=== PATIENT | female | born 1990 | race African-American/Black ===

== ENCOUNTER → 2017-06-27 14:51 | Emergency (ER) | payer BC ==
[~2017-06-27 14:51] MED LIST: NS 0.9% 1000 ML* 1,000 ML IV ONE; cefTRIAXone(*) 1 GM in NS 0.9% 50 ML* 50 ML IVPB ONE
[2017-06-27 16:15] LABS: Hematocrit 35 % (35-47); Hemoglobin 11.2 g/dl (12.0-16.0); Mean Corpuscular HGB Conc 33 g/dl (31-36); Mean Corpuscular Hemoglobin 26 pg (27-31); Mean Corpuscular Volume 79 fL (80-97); Mean Platelet Volume 9 um3 (7.4-10.4); Red Blood Count 4.38 10^6/ul (4.0-5.4); Red Cell Distribution Width 16 % (10.5-15); White Blood Count 8.1 10^3/ul (3.5-10.8)
[2017-06-27 16:31] LABS: Albumin 3.2 g/dL (3.2-5.2); BUN/Creatinine Ratio 15.8 (8-20); C Reactive Protein 12.55 mg/L (< 5.00); Calcium 8.6 mg/dL (8.6-10.3); EGFR African American 163.6 (>60); EGFR Non-African American 127.2 (>60); Globulin 3.3 g/dL (2-4); Potassium 3.3 mmol/L (3.5-5.0); Total Bilirubin 0.4 mg/dL (0.2-1.0); Total Protein 6.5 g/dL (6.4-8.9)
[2017-06-27 17:03] LABS: Urine Bacteria Absent (Absent); Urine Bilirubin Negative (Negative); Urine Glucose Negative (Negative); Urine Nitrite Negative (Negative)
[2017-06-27 19:14] VITALS: BP 118/66
--- NOTE | 2017-06-28 13:28 | ED ---
Shelton Albert Nilda, scribed for Stephen Rodriguez MD on 06/27/17 at 1656 . 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 The patient rates the pain 7/10 in severity. Symptoms aggravated by nothing and alleviated by spontaneous resolution. Patient reports dizziness, nausea, right adnexal groin pain, right back pain (intermittent, for 3 weeks), spotting, vomiting, diaphoresis, and chills. Patient denies vaginal discharge, burning with urination, dysuria, and fever. Patient is 36 weeks and has been feeling sick throughout the . No PMHx of pre-eclampsia or gestational diabetes. - History Of Current Complaint Chief Complaint: EDAbdPain Time Seen by Provider: 06/27/17 15:46 Hx Obtained From: Patient Onset/Duration: Sudden Onset Timing: Seconds Context: Witnessed Activity At Onset: Other - filing papers Aggravating Factor(s): Nothing Alleviating Factor(s): Spontaneous Resolution Associated Signs And Symptoms: Other - dizziness, nausea, right adnexal groin pain, right back pain (intermittent, for 3 weeks), spotting, vomiting, diaphoresis, and chills. Patient denies vaginal discharge, burning with urination, dysuria, and fever - Allergies/Home Medications Allergies/Adverse Reactions: Allergies Allergy/AdvReac Type Severity Reaction Status Date / Time No Known Allergies Allergy Verified 06/27/17 15:07 PMH/Surg Hx/FS Hx/Imm Hx Endocrine/Hematology History: Denies: Hx Diabetes, Hx Thyroid Disease Cardiovascular History: Denies: Hx Hypertension Respiratory History: Denies: Hx Asthma, Hx Chronic Obstructive Pulmonary Disease (COPD) GI History: Denies: Hx Ulcer Infectious Disease History: No Infectious Disease History: Denies: Hx Hepatitis, Hx Human Immunodeficiency Virus (HIV), History Other Infectious Disease, Traveled Outside the [place] in Last 30 Days - Family History Known Family History: Positive: Diabetes Negative: Hypertension - Social History Alcohol Use: Occasionally Substance Use Type: Reports: None Smoking Status (MU): Never Smoked Tobacco Review of Systems Positive: Chills, Skin Diaphoresis. Negative: Fever Negative: Erythema Negative: Sore Throat Negative: Chest Pain Negative: Shortness Of Breath, Cough Positive: Vomiting, Nausea. Negative: Abdominal Pain Genitourinary: Other - 36 week Positive: pain - right adnexal groin pain, other - spotting . Negative: burning, dysuria, discharge, hematuria Positive: Other - right back pain. Negative: Myalgia, Edema Neurological: Other - dizziness All Other Systems Reviewed And Are Negative: Yes Physical Exam - Summary Physical Exam Summary: Constitutional: Well-developed, Well-nourished, Alert. (-) Distressed Skin: Warm, Dry HENT: Normocephalic; Atraumatic Eyes: Conjunctiva normal, Dry Mucous Membrane Neck: Musculoskeletal ROM normal neck. (-) JVD, (-) Stridor, (-) Tracheal deviation Cardio: Rhythm regular, rate normal, Heart sounds normal; Intact distal pulses; The pedal pulses are 2+ and symmetric. Radial pulses are 2+ and symmetric. (-) Murmur Pulmonary/Chest wall: Effort normal. (-) Respiratory distress, (-) Wheezes, (-) Rales Abd: Soft, (-) Distension, (-) Guarding, (-) Rebound, Mild right groin tenderness Musculoskeletal: (-) Edema Lymph: (-) Cervical adenopathy Neuro: Alert, Oriented x3 Psych: Mood and affect Normal Triage Information Reviewed: Yes Vital Signs On Initial Exam: Initial Vitals Temp Pulse Resp BP Pulse Ox 98.2 F 89 16 100/56 97 06/27/17 15:07 06/27/17 15:07 06/27/17 15:07 06/27/17 15:07 06/27/17 15:07 Vital Signs Reviewed: Yes Diagnostics - Vital Signs Vital Signs Temp Pulse Resp BP Pulse Ox 06/27/17 16:30 92 103/52 99 06/27/17 16:00 80 109/62 98 06/27/17 15:30 90 99/52 98 06/27/17 15:23 118/60 06/27/17 15:16 86 97 06/27/17 15:09 88 97 06/27/17 15:07 98.2 F 89 16 100/56 97 - Laboratory Lab Results: Lab Results 06/27/17 06/27/17 06/27/17 Range/Units 16:00 16:00 16:00 WBC 8.1 (3.5-10.8) 10^3/ul RBC 4.38 (4.0-5.4) 10^6/ul Hgb 11.2 L (12.0-16.0) g/dl Hct 35 (35-47) % MCV 79 L (80-97) fL MCH 26 L (27-31) pg MCHC 33 (31-36) g/dl RDW 16 H (10.5-15) % Plt Count 189 (150-450) 10^3/ul MPV 9 (7.4-10.4) um3 Neut % (Auto) 71.6 (38-83) % Lymph % (Auto) 18.7 L (25-47) % Dewey % (Auto) 8.9 (1-9) % Eos % (Auto) 0.4 (0-6) % Baso % (Auto) 0.4 (0-2) % Absolute Neuts (auto) 5.8 (1.5-7.7) 10^3/ul Absolute Lymphs (auto) 1.5 (1.0-4.8) 10^3/ul Absolute Monos (auto) 0.7 (0-0.8) 10^3/ul Absolute Eos (auto) 0 (0-0.6) 10^3/ul Absolute Basos (auto) 0 (0-0.2) 10^3/ul Absolute Nucleated RBC 0.01 10^3/ul Nucleated RBC % 0.1 Sodium 133 (133-145) mmol/L Potassium 3.3 L (3.5-5.0) mmol/L Chloride 104 (101-111) mmol/L Carbon Dioxide 24 (22-32) mmol/L Anion Gap 5 (2-11) mmol/L BUN 9 (6-24) mg/dL Creatinine 0.57 (0.51-0.95) mg/dL Est GFR ( Amer) 163.6 (>60) Est GFR (Non-Af Amer) 127.2 (>60) BUN/Creatinine Ratio 15.8 (8-20) Glucose 86 (70-100) mg/dL Lactic Acid 0.7 (0.5-2.0) mmol/L Calcium 8.6 (8.6-10.3) mg/dL Total Bilirubin 0.40 (0.2-1.0) mg/dL AST 14 (13-39) U/L ALT 9 (7-52) U/L Alkaline Phosphatase 117 H (34-104) U/L C-Reactive Protein 12.55 H (< 5.00) mg/L Total Protein 6.5 (6.4-8.9) g/dL Albumin 3.2 (3.2-5.2) g/dL Globulin 3.3 (2-4) g/dL Albumin/Globulin Ratio 1.0 (1-3) Lipase 22 (11.0-82.0) U/L Result Diagrams: 06/27/17 16:00 06/27/17 16:00 Lab Statement: Any lab studies that have been ordered have been reviewed, and results considered in the medical decision making process. 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 The patient rates the pain 7/10 in severity. Symptoms aggravated by nothing and alleviated by spontaneous resolution. Patient reports dizziness, nausea, right adnexal groin pain, right back pain (intermittent, for 3 weeks), spotting, vomiting, diaphoresis, and chills. Patient denies vaginal discharge, burning with urination, dysuria, and fever. Patient is 36 weeks and has been feeling sick throughout the . No PMHx of pre- eclampsia or gestational diabetes. [1823] Dr. Jackson (EMAIL DESIGNER) recommends treating patient as outpatient and will see the patient tomorrow afternoon. He advises that IV Abx be administered in the ED. ED Physician agrees. Patient will be discharged with a diagnosis of UTI in and a follow up from Dr. Jackson tomorrow afternoon. The patient is agreeable with this plan. - Diagnoses Provider Diagnoses: UTI in - Physician Notifications Discussed Care of Patient With: Cornelius Jackson - EMAIL DESIGNER Time Discussed With Above Provider: 18:23 Instructed by Provider To: Other - Recommends treating patient as outpatient and will see the patient tomorrow afternoon. He advises that IV Abx be administered in the ED. ED Physician agrees. Discharge - Discharge Plan Condition: Good Disposition: HOME Prescriptions: Cephalexin CAP* [Keflex CAP*] 500 mg PO QID #28 cap Metoclopramide TAB* [Reglan TAB*] 10 mg PO Q8H PRN #6 tab PRN Reason: Nausea/Vomiting Patient Education Materials: Urinary Tract Infection in (ED) Referrals: Susana Colon MD [Primary Care Provider] - Cornelius Jackson MD [Medical Doctor] - 06/28/17 Additional Instructions: Return to ER if you have a fever. RETURN TO THE EMERGENCY DEPARTMENT FOR CHANGING OR WORSENING SYMPTOMS. The documentation as recorded by the Shelton sagastume Nilda accurately reflects the service I personally performed and the decisions made by , Stephen Rodriguez MD.
== END | disposition home or self-care (01) ==
LOC: ED 14:51
DX: O23.43 Unspecified infection of urinary tract in pregnancy, third trimester (principal); Z3A.36 36 weeks gestation of pregnancy; R11.0 Nausea; M54.9 Dorsalgia, unspecified
CPT/HCPCS: 36415; 80053; 81003; 81015; 83605; 83690; 85025; 86140; 87086; 99283; J0696

== ENCOUNTER 2017-10-30 20:02 | Emergency (ER) | payer BC, MEDICAID ==
[2017-10-30] MEDS ORDERED: NS 0.9% 1000 ML* 1,000 ML IV ONE (20:22)
[2017-10-30] MEDS ORDERED: Metoclopramide IV* 5 MG/ML 2 ML VIAL IV ONE (20:22)
[2017-10-30] MEDS ORDERED: Ketorolac INJ* 30 MG/ML 1 ML VIAL IV ONE (20:22)
[2017-10-30] MEDS ORDERED: diPHENhydraMINE IV* 50 MG/ML 1 ml VIAL (BENADRYL) IV ONE (20:24)
[2017-10-30 20:59] LABS: ABS Basophils 0.1 10^3/ul (0-0.2); ABS Eosinophils 0.1 10^3/ul (0-0.6); ABS Lymphocytes 1.8 10^3/ul (1.0-4.8); ABS Monocytes 0.6 10^3/ul (0-0.8); ABS Nucleated RBC 0 10^3/ul; Eosinophil % 1.2 % (0-6); Hematocrit 39 % (35-47); Hemoglobin 12.6 g/dl (12.0-16.0); Lymphocyte % 27.6 % (25-47); Mean Corpuscular HGB Conc 32 g/dl (31-36); Mean Corpuscular Hemoglobin 25 pg (27-31); Mean Corpuscular Volume 79 fL (80-97); Mean Platelet Volume 8 um3 (7.4-10.4); Nucleated Red Blood Cells % 0; Platelet Count 289 10^3/ul (150-450); Red Cell Distribution Width 15 % (10.5-15); White Blood Count 6.6 10^3/ul (3.5-10.8)
[2017-10-30 21:05] LABS: EGFR Non-African American 113.4 (>60)
[2017-10-30] MEDS ORDERED: diPHENhydraMINE IV* 50 MG/ML 1 ml VIAL (BENADRYL) ONE (21:06)
--- NOTE | 2017-10-30 21:41 | RAD ---
CLINICAL HISTORY: Abdominal pain COMPARISON: None TECHNIQUE: Multiple contiguous axial CT scans were obtained of the abdomen and pelvis, without intravenous contrast enhancement. Coronal and sagittal multiplanar reformations are submitted for review. Oral contrast was not administered. FINDINGS: LUNG BASES: The lung bases are clear. LIVER: The liver is normal in shape, size, contour, and attenuation. BILE DUCTS: There is no intrahepatic or extrahepatic biliary dilatation. GALLBLADDER: The gallbladder is normal, without pericholecystic inflammatory change. PANCREAS: The pancreas is normal, without mass or ductal dilatation. SPLEEN: Normal in size and appearance. UPPER GI TRACT: Evaluation of the gastrointestinal tract is limited by incomplete gastric distention. The upper GI tract is unremarkable. SMALL BOWEL AND MESENTERY: The small bowel is normal in contour, course, and caliber. There is no obstruction or dilatation. COLON: There is mucosal thickening of the distal transverse colon and the proximal descending colon. There is a tubular, vermiform, hollow viscus that is blind ending, and originates from the cecum, consistent with a normal appendix. There is no periappendiceal inflammatory change. ADRENALS: Normal bilaterally. KIDNEYS: The kidneys are normal in shape, size, contour, and axis. There is no hydronephrosis or nephrolithiasis. BLADDER: The bladder is smooth in contour. PELVIC ORGANS: The uterus and adnexa are grossly normal for technique. AORTA: The aorta is normal. IVC: Unremarkable LYMPH NODES: There is no lymphadenopathy by size criteria. ABDOMINAL WALL: There is a small fat-containing umbilical hernia. BONES AND SOFT TISSUES: Unremarkable OTHER: None IMPRESSION: THERE IS MUCOSAL THICKENING OF THE DISTAL TRANSVERSE COLON AND PROXIMAL DESCENDING COLON. WHILE THIS MAY BE AN ARTIFACT OF INCOMPLETE DISTENTION, THE DIFFERENTIAL DOES INCLUDE COLITIS.
[2017-10-30 22:20] VITALS: BP 111/70
--- NOTE | 2017-10-31 06:34 | ED ---
Romulo Albert Gabriel, scribed for Alisson Carrera MD on 10/30/17 at 2028 . Headache - HPI Summary HPI Summary: This patient is a 27 year old F BIBA to [facility] with a chief complaint of left sided WALSH that began this afternoon. The patient rates the pain 7/10 in severity. Patient reports intermittent ABD pain on left side, vomiting, photophobia, and dizziness. Patient denies diarrhea, fever, hematuria, numbness , tingling, and weakness. Patient just had her first child in July and is taking medication for post- depression. No hx of kidney stones or migraines. Given 4mg zofran by EMS. - History Of Current Complaint Chief Complaint: EDAbdPain Stated Complaint: ABD PAINS Time Seen by Provider: 10/30/17 20:16 Hx Obtained From: Patient Hx Last Menstrual Period: 08/22/14 Onset/Duration: Started hours ago, Still Present Initially Headache Was: "Worst Headache Ever" - 7 Currently Pain Is: Current Pain Scale(0-10)= - 7 Timing: Constant Location of Headache: Other: - left hand side Aggravating Factor: Bright Lights Associated Signs And Symptoms: Negative - diarrhea, fever, hematuria, numbness , tingling, and weakness, Other (Noted In Comments) - intermittent ABD pain on left side, vomiting, photophobia, and dizziness - Allergies/Home Medications Allergies/Adverse Reactions: Allergies Allergy/AdvReac Type Severity Reaction Status Date / Time No Known Allergies Allergy Verified 07/26/17 09:52 PMH/Surg Hx/FS Hx/Imm Hx Endocrine/Hematology History: Denies: Hx Diabetes, Hx Thyroid Disease Cardiovascular History: Denies: Hx Hypertension Respiratory History: Denies: Hx Asthma, Hx Chronic Obstructive Pulmonary Disease (COPD) GI History: Denies: Hx Ulcer History: Denies: Hx Kidney Infection, Hx Kidney Stones, Hx Renal Disease Neurological History: Denies: Hx Migraine Psychiatric History: Denies: Hx Anxiety, Hx Depression, Other Psychiatric Issues/Disorders Infectious Disease History: No Infectious Disease History: Denies: Hx Hepatitis, Hx Human Immunodeficiency Virus (HIV), History Other Infectious Disease, Traveled Outside the [place] in Last 30 Days - Family History Known Family History: Positive: Diabetes Negative: Hypertension - Social History Lives: With Family Alcohol Use: Occasionally Substance Use Type: Reports: None Smoking Status (MU): Never Smoked Tobacco Have You Smoked in the Last Year: No Review of Systems Negative: Fever Positive: Photophobia Positive: Abdominal Pain, Vomiting. Negative: Diarrhea Negative: hematuria Neurological: Other - dizziness Negative: Weakness, Paresthesia, Numbness All Other Systems Reviewed And Are Negative: Yes Physical Exam - Summary Physical Exam Summary: VITAL SIGNS: Reviewed. GENERAL: Patient is a well-developed and nourished female who is lying comfortable in the stretcher. Patient is not in any acute respiratory distress. HEAD AND FACE: No signs of trauma. No ecchymosis, hematomas or skull depressions. No sinus tenderness. EYES: PERRLA, EOMI x 2, No injected conjunctiva, no nystagmus. Photophobic EARS: Hearing grossly intact. Ear canals and tympanic membranes are within normal limits. MOUTH: Oropharynx within normal limits. NECK: Supple, trachea is midline, no adenopathy, no JVD, no carotid bruit, no c- spine tenderness, neck with full ROM. CHEST: Symmetric, no tenderness at palpation LUNGS: Clear to auscultation bilaterally. No wheezing or crackles. CVS: Regular rate and rhythm, S1 and S2 present, no murmurs or gallops appreciated. ABDOMEN: Soft. No signs of distention. No rebound no guarding, and no masses palpated. Bowel sounds are normal. LLQ and LUQ is TTP EXTREMITIES: FROM in all major joints, no edema, no cyanosis or clubbing. NEURO: Alert and oriented x 3. No acute neurological deficits. Speech is normal and follows commands. SKIN: Dry and warm Triage Information Reviewed: Yes Vital Signs On Initial Exam: Initial Vitals Temp Pulse Resp BP Pulse Ox 98.7 F 82 18 122/87 98 10/30/17 20:06 10/30/17 20:06 10/30/17 20:06 10/30/17 20:06 10/30/17 20:06 Vital Signs Reviewed: Yes Diagnostics - Vital Signs Vital Signs Temp Pulse Resp BP Pulse Ox 10/30/17 20:06 98.7 F 82 18 122/87 98 - Laboratory Result Diagrams: 10/30/17 20:40 10/30/17 20:40 Lab Statement: Any lab studies that have been ordered have been reviewed, and results considered in the medical decision making process. Re-Evaluation - Re-Evaluation First Eval Re-Evaluation Time: 21:30 Change: Improved Comment: The patients headache has resolved she feels better but she does not want to wait for her CT results. Headache Course/Dx - Course Assessment/Plan: This patient is a 27 year old F BIBA to [facility] with a chief complaint of left sided WALSH that began this afternoon. The patient rates the pain 7/10 in severity. Patient reports intermittent ABD pain on left side, vomiting, photophobia, and dizziness. Patient denies diarrhea, fever, hematuria , numbness, tingling, and weakness. Patient just had her first child in July and is taking medication for post- depression. No hx of kidney stones or migraines. Given 4mg zofran by EMS. . Bloodwork obtained with no significant abnormalities. Patient would not wait for the CT results. In the ED course the patient was given Reglan, IV fluids, toradol, and benadryl. Patient will sign out AMA with follow up with PCP JOSELITO. The patient is agreeable with this plan. - Diagnoses Provider Diagnoses: Headache, Abdominal pain Discharge - Discharge Plan Condition: Fair Disposition: AGAINST MEDICAL ADVICE Patient Education Materials: Acute Headache (ED), Acute Abdominal Pain (ED) Referrals: Susana Colon MD [Primary Care Provider] - As Soon As Possible Additional Instructions: You are leaving against medical advice; see your primary care provider as soon as possible. RETURN TO EMERGENCY DEPARTMENT FOR ANY NEW OR WORSENING SYMPTOMS The documentation as recorded by the Romulo sagastume Gabriel accurately reflects the service I personally performed and the decisions made by me, Alisson Carrera MD.
== END 2017-10-30 22:16 | disposition left against medical advice (07) ==
LOC: ED 20:02
DX: R51 Headache (principal); R10.9 Unspecified abdominal pain
CPT/HCPCS: 36415; 74176; 80053; 82150; 83690; 84702; 85025; 86140; 96360; 96374; 96375; 96376; 99283; J1200; J1885; J2765

== ENCOUNTER 2017-10-31 11:34 | Emergency (ER) | payer BC, MEDICAID ==
[2017-10-31 13:24] LABS: ABS Basophils 0.1 10^3/ul (0-0.2); ABS Eosinophils 0.1 10^3/ul (0-0.6); ABS Lymphocytes 1.5 10^3/ul (1.0-4.8); ABS Monocytes 0.4 10^3/ul (0-0.8); ABS Neutrophils 3.8 10^3/ul (1.5-7.7); ABS Nucleated RBC 0 10^3/ul; Hematocrit 40 % (35-47); Hemoglobin 12.7 g/dl (12.0-16.0); Lymphocyte % 25.6 % (25-47); Mean Corpuscular HGB Conc 32 g/dl (31-36); Mean Corpuscular Hemoglobin 25 pg (27-31); Mean Corpuscular Volume 79 fL (80-97); Mean Platelet Volume 8 um3 (7.4-10.4); Nucleated Red Blood Cells % 0.1; Platelet Count 282 10^3/ul (150-450); Red Blood Count 5.08 10^6/ul (4.0-5.4); Red Cell Distribution Width 16 % (10.5-15); White Blood Count 5.7 10^3/ul (3.5-10.8)
[2017-10-31 13:40] LABS: EGFR Non-African American 82.5 (>60)
[2017-10-31 14:10] LABS: Urine Appearance Cloudy; Urine Blood 1+ (Negative); Urine Color Yellow; Urine Ketones Negative (Negative); Urine Protein Negative (Negative); Urine Specific Gravity 1.023 (1.010-1.030); Urine Urobilinogen Negative (Negative)
[2017-10-31] MEDS ORDERED: NS 0.9% 1000 ML* 1,000 ML IV ONE (14:25)
[2017-10-31] MEDS ORDERED: Ketorolac INJ* 30 MG/ML 1 ML VIAL IV PUSH ONE (14:25)
[2017-10-31] MEDS ORDERED: Ondansetron INJ* 2 MG/ML VIAL IV ONE (14:25)
--- NOTE | 2017-10-31 14:26 | ED ---
Abdominal Pain/Female - HPI Summary HPI Summary: 27 female presents to ED with complaints of left lower abdominal pain, fever, headache, n/v, and dizziness that has been on going since yesterday. Patient states she was seen yesterday after becoming sick while at work last night. Signed out AMA without CT results. Patient did however call and hear that CT did show possible colitis. Denies diarrhea, current fever, has not vomited today. Denies chest pain or trouble breathing. States headache feels typical and it is diffuse. Dizziness is at all times associated with photophobia. No recent trauma or injury. No numbness/tingling or changes to vision. Also admits to body aches. Has not taken any medication. Did receive zofran, toradol and fluids yesterday with relief. Is taking ecitalopram for post- depression. No other PMHx. no other complaints. Was unable to get into PCP and told to return to ED if abdominal pain symptoms were worsening. Has also had decreased appetite, not been eating or drinking. LBM yesterday and and normal. No urinary symptoms. - History of Current Complaint Chief Complaint: EDAbdPain Stated Complaint: VOMITING, HEAD PAIN, Time Seen by Provider: 10/31/17 12:32 Hx Obtained From: Patient Hx Last Menstrual Period: 08/22/14 ?: No Onset/Duration: Sudden Onset, Lasting Days, Still Present Timing: Constant Severity Initially: Mild Severity Currently: Mild Pain Intensity: 5 Pain Scale Used: 0-10 Numeric Location: Discrete At: LLQ Radiates: No Radiates to: LLQ Character: Dull - aching Aggravating Factor(s): Nothing Alleviating Factor(s): Medications - given yesterday Associated Signs and Symptoms: Positive: Fever, Decreased Appetite, Nausea, Vomiting - resolved. Negative: Constipation, Blood in Stool, Urinary Symptoms Allergies/Adverse Reactions: Allergies Allergy/AdvReac Type Severity Reaction Status Date / Time No Known Allergies Allergy Verified 07/26/17 09:52 PMH/Surg Hx/FS Hx/Imm Hx Endocrine/Hematology History: Denies: Hx Diabetes, Hx Thyroid Disease Cardiovascular History: Denies: Hx Hypertension Respiratory History: Denies: Hx Asthma, Hx Chronic Obstructive Pulmonary Disease (COPD) GI History: Denies: Hx Ulcer History: Denies: Hx Kidney Infection, Hx Kidney Stones, Hx Renal Disease Neurological History: Denies: Hx Migraine Psychiatric History: Denies: Hx Anxiety, Hx Depression, Other Psychiatric Issues/Disorders - Surgical History Surgery Procedure, Year, and Place: none - Immunization History Immunizations Up to Date: Yes Infectious Disease History: No Infectious Disease History: Denies: Hx Hepatitis, Hx Human Immunodeficiency Virus (HIV), History Other Infectious Disease, Traveled Outside the [place] in Last 30 Days - Family History Known Family History: Positive: None, Diabetes Negative: Hypertension - Social History Alcohol Use: Occasionally Substance Use Type: Reports: None Smoking Status (MU): Never Smoked Tobacco Have You Smoked in the Last Year: No Review of Systems Positive: Fever - resolved Positive: Photophobia ENT: Negative Cardiovascular: Negative Respiratory: Negative Positive: Abdominal Pain, Vomiting - resolved, Nausea Genitourinary: Negative Positive: Myalgia Positive: Headache - dizziness All Other Systems Reviewed And Are Negative: Yes Physical Exam Triage Information Reviewed: Yes Vital Signs On Initial Exam: Initial Vitals Temp Pulse Resp BP Pulse Ox 98.7 F 80 18 127/88 100 10/31/17 11:37 10/31/17 11:37 10/31/17 11:37 10/31/17 11:37 10/31/17 11:37 Vital Signs Reviewed: Yes Appearance: Positive: Well-Appearing, No Pain Distress, Well-Nourished Skin: Positive: Warm, Skin Color Reflects Adequate Perfusion, Dry. Negative: Cold, Numb, Erythema @ Head/Face: Positive: Normal Head/Face Inspection Eyes: Positive: Conjunctiva Clear ENT: Positive: Pharynx normal, TMs normal Neck: Positive: Supple, Nontender Respiratory/Lung Sounds: Positive: Clear to Auscultation, Breath Sounds Present. Negative: Rales, Rhonchi, Wheezes Cardiovascular: Positive: Normal, RRR, Pulses are Symmetrical in both Upper and Lower Extremities. Negative: Murmur, Rub Abdomen Description: Positive: No Organomegaly, Soft, CVA Tenderness (L), Other : - tenderness to left lower and mid quadrant on palpation. Negative: Bruit, CVA Tenderness (R), Distended, Guarding, McBurney's Point Tenderness, Peritoneal Signs, Pulsatile Mass Bowel Sounds: Positive: Present Pelvic Exam: Positive: external exam normal - deferred, asymptomatic no suprapubic pain Musculoskeletal: Positive: Normal, Strength/ROM Intact Neurological: Positive: Normal, Sensory/Motor Intact, Alert, Oriented to Person Place, Time Diagnostics - Vital Signs Vital Signs Temp Pulse Resp BP Pulse Ox 10/31/17 11:37 98.7 F 80 18 127/88 100 - Laboratory Lab Results: Lab Results 10/31/17 10/31/17 10/31/17 Range/Units 13:05 13:15 13:15 WBC 5.7 (3.5-10.8) 10^3/ul RBC 5.08 (4.0-5.4) 10^6/ul Hgb 12.7 (12.0-16.0) g/dl Hct 40 (35-47) % MCV 79 L (80-97) fL MCH 25 L (27-31) pg MCHC 32 (31-36) g/dl RDW 16 H (10.5-15) % Plt Count 282 (150-450) 10^3/ul MPV 8 (7.4-10.4) um3 Neut % (Auto) 65.7 (38-83) % Lymph % (Auto) 25.6 (25-47) % Baker % (Auto) 6.5 (1-9) % Eos % (Auto) 1.0 (0-6) % Baso % (Auto) 1.2 (0-2) % Absolute Neuts (auto) 3.8 (1.5-7.7) 10^3/ul Absolute Lymphs (auto) 1.5 (1.0-4.8) 10^3/ul Absolute Monos (auto) 0.4 (0-0.8) 10^3/ul Absolute Eos (auto) 0.1 (0-0.6) 10^3/ul Absolute Basos (auto) 0.1 (0-0.2) 10^3/ul Absolute Nucleated RBC 0 10^3/ul Nucleated RBC % 0.1 Sodium 138 (133-145) mmol/L Potassium 4.1 (3.5-5.0) mmol/L Chloride 108 (101-111) mmol/L Carbon Dioxide 27 (22-32) mmol/L Anion Gap 3 (2-11) mmol/L BUN 11 (6-24) mg/dL Creatinine 0.83 (0.51-0.95) mg/dL Est GFR ( Amer) 106.1 (>60) Est GFR (Non-Af Amer) 82.5 (>60) BUN/Creatinine Ratio 13.3 (8-20) Glucose 85 (70-100) mg/dL Lactic Acid (0.5-2.0) mmol/L Calcium 9.1 (8.6-10.3) mg/dL Total Bilirubin 0.30 (0.2-1.0) mg/dL AST 14 (13-39) U/L ALT 15 (7-52) U/L Alkaline Phosphatase 70 (34-104) U/L C-Reactive Protein 7.44 H (< 5.00) mg/L Total Protein 6.9 (6.4-8.9) g/dL Albumin 3.7 (3.2-5.2) g/dL Globulin 3.2 (2-4) g/dL Albumin/Globulin Ratio 1.2 (1-3) Lipase 31 (11.0-82.0) U/L Urine Color Urine Appearance Urine pH (5-9) Ur Specific [place] (1.010-1.030) Urine Protein (Negative) Urine Ketones (Negative) Urine Blood (Negative) Urine Nitrate (Negative) Urine Bilirubin (Negative) Urine Urobilinogen (Negative) Ur Leukocyte Esterase (Negative) Urine WBC (Auto) (Absent) Urine RBC (Auto) (Absent) Ur Squamous Epith Cells (Absent) Urine Bacteria (Absent) Urine Glucose (Negative) Influenza A (Rapid) Negative (Negative) Influenza B (Rapid) Negative (Negative) 10/31/17 10/31/17 Range/Units 13:15 13:55 WBC (3.5-10.8) 10^3/ul RBC (4.0-5.4) 10^6/ul Hgb (12.0-16.0) g/dl Hct (35-47) % MCV (80-97) fL MCH (27-31) pg MCHC (31-36) g/dl RDW (10.5-15) % Plt Count (150-450) 10^3/ul MPV (7.4-10.4) um3 Neut % (Auto) (38-83) % Lymph % (Auto) (25-47) % Baker % (Auto) (1-9) % Eos % (Auto) (0-6) % Baso % (Auto) (0-2) % Absolute Neuts (auto) (1.5-7.7) 10^3/ul Absolute Lymphs (auto) (1.0-4.8) 10^3/ul Absolute Monos (auto) (0-0.8) 10^3/ul Absolute Eos (auto) (0-0.6) 10^3/ul Absolute Basos (auto) (0-0.2) 10^3/ul Absolute Nucleated RBC 10^3/ul Nucleated RBC % Sodium (133-145) mmol/L Potassium (3.5-5.0) mmol/L Chloride (101-111) mmol/L Carbon Dioxide (22-32) mmol/L Anion Gap (2-11) mmol/L BUN (6-24) mg/dL Creatinine (0.51-0.95) mg/dL Est GFR ( Amer) (>60) Est GFR (Non-Af Amer) (>60) BUN/Creatinine Ratio (8-20) Glucose (70-100) mg/dL Lactic Acid 0.7 (0.5-2.0) mmol/L Calcium (8.6-10.3) mg/dL Total Bilirubin (0.2-1.0) mg/dL AST (13-39) U/L ALT (7-52) U/L Alkaline Phosphatase (34-104) U/L C-Reactive Protein (< 5.00) mg/L Total Protein (6.4-8.9) g/dL Albumin (3.2-5.2) g/dL Globulin (2-4) g/dL Albumin/Globulin Ratio (1-3) Lipase (11.0-82.0) U/L Urine Color Yellow Urine Appearance Cloudy Urine pH 6.0 (5-9) Ur Specific [place] 1.023 (1.010-1.030) Urine Protein Negative (Negative) Urine Ketones Negative (Negative) Urine Blood 1+ H (Negative) Urine Nitrate Negative (Negative) Urine Bilirubin Negative (Negative) Urine Urobilinogen Negative (Negative) Ur Leukocyte Esterase Trace H (Negative) Urine WBC (Auto) Trace(0-5/hpf) (Absent) Urine RBC (Auto) Trace(0-2/hpf) (Absent) Ur Squamous Epith Cells Present H (Absent) Urine Bacteria Absent (Absent) Urine Glucose Negative (Negative) Influenza A (Rapid) (Negative) Influenza B (Rapid) (Negative) Result Diagrams: 10/31/17 13:15 10/31/17 13:15 Lab Statement: Any lab studies that have been ordered have been reviewed, and results considered in the medical decision making process. Re-Evaluation - Re-Evaluation First Eval Re-Evaluation Time: 15:00 Change: Improved - had relief, all pain under control, still felt slightly dizzy. will give meclizine Second Eval Re-Evaluation Time: 16:00 Change: Improved - patient feel better, updated on all labs and results. aware and understands. agrees with plan. all questions answered. symptoms relieved Abdominal Pain Fem Course/Dx - Course Course Of Treatment: yesterday CT results: THERE IS MUCOSAL THICKENING OF THE DISTAL TRANSVERSE COLON AND PROXIMAL DESCENDING COLON. WHILE THIS MAY BE AN ARTIFACT OF INCOMPLETE DISTENTION, THE DIFFERENTIAL DOES INCLUDE COLITIS. Patient was made aware of her results. Repeat labs obtained, given toradol, zofran and meclizine had relief. increase fluids, possibly dehydrated from not eating/drinking. No recent traum or injury. Urinalysis unremarkable will wait for culture results. Appears to be suffering from viral illness. influzena obtained and negative. will treat symptomatically. encouraged fluids and rest. aware of worsening signs and symptoms to watch out for. Follow up GI/PCP. bland diet. No other concerns at this time due to PE findings, HPI and lab results. Labs unremarkable, improved since last nights CRP. and CT unremarkable from last night other than possible colitis. - Diagnoses Differential Diagnosis: Positive: Irritable Bowel Syndrome, Other - colitis, gastroenteritis, acute nausea/vomiting, headache, viral illness, dizzinss Provider Diagnoses: Colitis, Viral illness, Headache, Dizziness Discharge - Discharge Plan Condition: Stable Disposition: HOME Prescriptions: Meclizine TAB* [Antivert 12.5 TAB*] 25 mg PO TID PRN #15 tab PRN Reason: Dizziness Ondansetron ODT TAB* [Zofran 4 MG Odt TAB*] 4 mg PO Q6H PRN #10 tab.odt PRN Reason: Nausea traMADol TAB* [Ultram*] 25 mg PO Q6HR PRN #20 tab MDD 2 PRN Reason: Pain Patient Education Materials: Gastroenteritis (ED), Acute Headache (ED), Viral Syndrome (ED), Colitis (ED) Referrals: Susana Colon MD [Primary Care Provider] - Rudy Ruby MD [Medical Doctor] - Additional Instructions: Take prescribed medication to help with symptoms. Increase fluid intake, bland diet such as bananas, rice, applesauce, toast. Any new or worsening symptoms please seek medical attention promptly, as discussed. Follow up with GI and PCP.
[2017-10-31] MEDS ORDERED: Meclizine TAB* 12.5 MG PO ONE (15:25)
[2017-10-31 16:12] VITALS: BP 122/84
== END 2017-10-31 16:11 | disposition home or self-care (01) ==
LOC: ED 11:34
DX: K52.9 Noninfective gastroenteritis and colitis, unspecified (principal); B34.9 Viral infection, unspecified; R51 Headache; R42 Dizziness and giddiness
CPT/HCPCS: 36415; 80053; 81003; 81015; 83605; 83690; 85025; 86140; 87086; 87502; 96361; 96374; 96375; 99283; A9270-GY; J1885; J2405

== ENCOUNTER 2018-09-01 00:43 | Inpatient (IN) | payer BC, MEDICAID ==
--- NOTE | 2018-09-01 01:14 | HP ---
General Information - General Information Maternal Age: 27 Grav: 4 Para: 1 SAB: 1 IEA: 1 Estimated Due Date: 07/23/17 Determined By: Early Ultrasound Maternal Blood Type and Rh: O Positive - Results this Serology/RPR Result: Non-Reactive Rubella Result: Immune HBsAg Result: Negative HIV Result: Negative GBS Culture Result: Negative Past Medical History Delivery History: Hx Complicated Vaginal Delivery - 3rd degree laceration with first baby, 1st degree with second baby; 1st baby in NICU x 3 days for fever Pertinent Past Medical History: See Records - seasonal allergies, back pain Pertinent Past Surgical History: See Records - drainage of spider bite Pertinent Family History: See Records - HTN, colon CA - Antepartal Records Antepartal Records: Reviewed, Complicated by: - Anemia Review of Systems Constitutional: Uncomfortable CV Complaint: No Respiratory: Shortness of Breath: No Gastrointestinal: No Nausea/Vomiting, Normal Bowel Movement Genitourinary: No Dysuria, No Bleeding, No Leaking Fluid Musculoskeletal: No Epigastric Pain, Contractions Neurological: No Headache, No Visual Changes Movement: Normal Exam Allergies/Adverse Reactions: Allergies No Known Allergies Allergy (Verified 07/26/17 09:52) T-98.1, P-85, R-20, BP- 139/86, O2- 99% - Measurements Height: 5 ft 4 in Weight: 87.997 kg Body Mass Index (BMI): 33.3 Pre- Weight: 72.575 kg - Exam Breast: Breast Exam Deferred CVA: No CVA Tenderness Extremities: No Edema Heart: Normal Rhythm/Heart Sounds HEENT: No Significant Findings Lungs: Clear Bilaterally Rectal: Rectal Exam Deferred Reflexes: DTR 2+ Thyroid: No Thyromegaly - Abdominal Exam Abdomen Exam: Non-Tender, Fundal Height Consistent with Dates - Ultrasound/Biophysical Profile Ultrasound Status: Not Done Targeted Exam Findings See L&D Outpatient Visit Provider Note for Findings: N/A Estimated Weight: 7# Cervical Exam: 3cm - 3-4 cm Effacement: 80% Station: -1 Presenting Part: Vertex Membrane Status: Intact Bleeding/Discharge: None EFM Findings - External Monitor Findings Baseline Heart Rate: 125 External Monitor Findings: No Pattern of Variable or Late Decelerations, Variability Moderate, Baseline Stable, Accelerations Absent Contractions: Regular, Moderate Contraction Frequency: 2-4 Assessment/Plan - Assessment 28 year old at 39 4/7 weeks gestation in active labor, FHR Cat I, membranes intact, GBS negative. - Plan Plan: Admit - Anticipate Vaginal Delivery Plan Comment: Pt to be admitted to L&D. Pt requesting epidural for pain relief. Will contact anesthesia. - Date/Time of Admission Date of Admission: 09/01/18 Time of Admission: 01:02
[2018-09-01 01:20] LABS: ABS Basophils 0.1 10^3/ul (0-0.2); ABS Eosinophils 0 10^3/ul (0-0.6); ABS Lymphocytes 1.8 10^3/ul (1.0-4.8); ABS Monocytes 0.7 10^3/ul (0-0.8); ABS Neutrophils 4.5 10^3/ul (1.5-7.7); ABS Nucleated RBC 0 10^3/ul; Eosinophil % 0.5 %; Hematocrit 29 % (35-47); Hemoglobin 9.1 g/dl (12.0-16.0); Lymphocyte % 25.3 %; Mean Corpuscular HGB Conc 32 g/dl (31-36); Mean Corpuscular Hemoglobin 21 pg (27-31); Mean Corpuscular Volume 66 fL (80-97); Nucleated Red Blood Cells % 0.1; Platelet Count 214 10^3/ul (150-450); Red Blood Count 4.36 10^6/ul (4.00-5.40); Red Cell Distribution Width 19 % (10.5-15); White Blood Count 7.1 10^3/ul (3.5-10.8)
[2018-09-01] MEDS ORDERED: OBEPIDURAL* 250 ML EPIDURAL ONE (01:29)
[2018-09-01] MEDS ORDERED: EPHEDrine (Pressors)* 50 MG/ML VIAL IV PUSH PRN (02:18)
[2018-09-01] MEDS ORDERED: Sodium Citrate/Citric Acid* 15 ML UDC PO PRN (02:18)
[2018-09-01] MEDS ORDERED: Famotidine TAB* 20 MG PO PRN (02:18)
[2018-09-01] MEDS ORDERED: Phenylephrine IV* 40 MCG/ML 10 ML SYRINGE IV PUSH PRN (02:18)
[2018-09-01] MEDS ORDERED: OBEPIDURAL* 250 ML EPIDURAL SCH (03:00)
[2018-09-01] MEDS ORDERED: fentaNYL* 50 MCG/ML 5 ML VIAL (250 MCG VIAL) ONE (04:58)
[2018-09-01] MEDS ORDERED: Oxytocin in LR* 20 UNITS/1,000 ML BAG IVPB ONE (06:09)
[2018-09-01] MEDS ORDERED: Witch Hazel PAD* JAR TOPICAL PRN (07:18)
[2018-09-01] MEDS ORDERED: Glycerin ADULT SUPP PR PRN (07:18)
[2018-09-01] MEDS ORDERED: Dibucaine 1% 28.35 GM TUBE PR PRN (07:18)
[2018-09-01] MEDS: Ibuprofen TAB* 600 MG PO PRN ×3 (09:04→21:40)
[2018-09-01] MEDS: Acetaminophen TAB* 325 MG PO PRN ×3 (11:25→20:11)
[2018-09-01] MEDS: Docusate CAP* 100 MG PO SCH ×2 (13:58→20:11)
--- NOTE | 2018-09-01 21:42 | PROCNOTE ---
[facility] OB: Delivery Note - Delivery A Date of : 09/01/18 Time of : 06:08 [place] Sex: Male Weight at : 2.835 kg Score 1 Minute: 9 Score 5 Minutes: 9 Gestational Age in Weeks and Days at Delivery: 97 Weeks and 6 Days Delivery Method: Spontaneous Vaginal Labor: Spontaneous Did Patient attempt ?: N/A, No Previous Amniotic Fluid: Clear Estimated Blood Loss: 300 Anesthesia/Analgesia: CEI for Labor Anesthesia Comment: epidural x2 Delivered By: Emerald Loyola - Nursery Level of Nursery: Regular/Bedside - Perineum Perineal Injury: Perineal Laceration, 1st Degree Perineal Repair: By Delivering Practioner - Events Delivery Events of Note: Pitocin Only After Delivery - Additional Delivery Notes Additional Delivery Notes: Pt arrived to unit in active labor at 39 4/7 weeks gestation. Pt very uncomfortable on arrival, and after getting her settled and admitted, anesthesia called to place epidural per pt request. Unfortunately first epidural only provided pt with minimal pain relief. Initially it helped enough that pt was able to cope, although with difficulty. Pt made steady progress in dilation. AROM performed to clear fluid to attempt to speed delivery with pt consent. As she progressed, however, pt became too uncomfortable and anesthesiologist was paged to replace epidural. Epidural replaced and pt had good relief. Soon after she began to experience increased pressure and an urge to push. Pt checked and found to be fully dilated. Pt began to push with some coaching and soon pushed effectively with good descent. 's head delivered OA to MANN, shoulders followed without difficulty. Infant to maternal abdomen with spontaneous cry and HR >100. toweled dry. Soon after the pt had a small gush of blood. Cord clamped x2 after 1 minute and pt assisted to cut the cord herself. Placenta soon followed with gentle cord traction, intact with calcifications. Pitocin initiated 20 mu in 1L at 250 ml/hr. Fundus remained firm, bleeding minimal. Infant and mother in stable condition, anticipate normal course.
[2018-09-02] MEDS: Acetaminophen TAB* 325 MG PO PRN ×5 (00:51→20:09)
[2018-09-02] MEDS: Ibuprofen TAB* 600 MG PO PRN ×4 (04:02→22:01)
[2018-09-02 06:53] LABS: ABS Basophils 0.1 10^3/ul (0-0.2); ABS Eosinophils 0 10^3/ul (0-0.6); ABS Monocytes 0.7 10^3/ul (0-0.8); ABS Neutrophils 5.9 10^3/ul (1.5-7.7); ABS Nucleated RBC 0 10^3/ul; Eosinophil % 0.5 %; Hematocrit 25 % (35-47); Hemoglobin 7.7 g/dl (12.0-16.0); Lymphocyte % 23.4 %; Mean Corpuscular HGB Conc 32 g/dl (31-36); Mean Corpuscular Hemoglobin 21 pg (27-31); Mean Corpuscular Volume 66 fL (80-97); Mean Platelet Volume 8.4 fL (7.4-10.4); Nucleated Red Blood Cells % 0.1; Platelet Count 198 10^3/ul (150-450); Red Blood Count 3.71 10^6/ul (4.00-5.40); Red Cell Distribution Width 19 % (10.5-15); White Blood Count 8.7 10^3/ul (3.5-10.8)
[2018-09-02] MEDS: Ferrous Gluconate TAB* 324 MG TAB PO SCH ×2 (09:09→20:10)
[2018-09-02] MEDS: Docusate CAP* 100 MG PO SCH ×3 (09:10→20:10)
[2018-09-03] MEDS: Acetaminophen TAB* 325 MG PO PRN (02:30)
[2018-09-03] MEDS: Ibuprofen TAB* 600 MG PO PRN ×2 (03:37→09:01)
[2018-09-03 08:56] VITALS: BP 127/73
[2018-09-03] MEDS: Docusate CAP* 100 MG PO SCH ×2 (09:01→09:02)
[2018-09-03] MEDS: Ferrous Gluconate TAB* 324 MG TAB PO SCH (09:01)
== END 2018-09-03 10:59 | disposition home or self-care (01) | DRG 560 ==
LOC: MCHOBOUT 00:43 → MCHOB 01:02
PROVIDERS: ADMIT Midwife; ATTEND Midwife
PROC: 10E0XZZ Delivery of Products of Conception, External Approach (ICD-10-PCS; principal; 2018-09-01)
PROC: 10907ZC Drainage of Amniotic Fluid, Therapeutic from Products of Conception, Via Natural or Artificial Opening (ICD-10-PCS; 2018-09-01)
PROC: 0HQ9XZZ Repair Perineum Skin, External Approach (ICD-10-PCS; 2018-09-01)
DX: O70.0 First degree perineal laceration during delivery (principal); Z37.0 Single live birth; O90.81 Anemia of the puerperium; D64.9 Anemia, unspecified; Z3A.39 39 weeks gestation of pregnancy
CPT/HCPCS: 36415; 85025; 85060; 86850; 86900; 86901; A9270-GY; J3010

== ENCOUNTER 2019-03-10 11:02 | Emergency (ER) | payer BC, MEDICAID ==
[2019-03-10 11:24] VITALS: BP 126/74
--- NOTE | 2019-03-10 12:17 | UC ---
Respiratory Complaint HPI - HPI Summary HPI Summary: started with cough and ST 03/01/19. has been using OTC cold meds and not getting better. today cough is making ST worse all 3 kids are sick as well - History of Current Complaint Chief Complaint: UCRespiratory Stated Complaint: URI Time Seen by Provider: 03/10/19 11:47 Hx Last Menstrual Period: 02/08/19 Pain Intensity: 8 - Allergies/Home Medications Allergies/Adverse Reactions: Allergies Allergy/AdvReac Type Severity Reaction Status Date / Time No Known Allergies Allergy Verified 03/10/19 11:24 Home Medications: Home Medications D-Methorphan/PE/Acetaminophen [Vicks Dayquil Liquicaps] 2 cap PO 03/10/19 [ History] PMH/Surg Hx/FS Hx/Imm Hx Previously Healthy: Yes - Surgical History Surgical History: None Surgery Procedure, Year, and Place: none - Family History Known Family History: Positive: None, Diabetes Negative: Hypertension - Social History Occupation: Employed Full-time Lives: With Family Alcohol Use: Occasionally Substance Use Type: None Smoking Status (MU): Never Smoked Tobacco Have You Smoked in the Last Year: No - Immunization History Most Recent Influenza Vaccination: 06/28/2018 Most Recent Pneumonia Vaccination: n/a Review of Systems All Other Systems Reviewed And Are Negative: Yes Constitutional: Positive: Negative Skin: Positive: Negative. Negative: Rash ENT: Positive: Sore Throat, Sinus Congestion Respiratory: Positive: Cough Cardiovascular: Positive: Negative Gastrointestinal: Positive: Negative Neurological: Positive: Negative. Negative: Headache Psychological: Positive: Negative Is Patient Immunocompromised?: No Physical Exam Triage Information Reviewed: Yes Appearance: Well-Appearing, No Pain Distress, Obese Vital Signs: Initial Vital Signs Temp 97.1 F 03/10/19 11:21 Pulse 104 03/10/19 11:21 Resp 18 03/10/19 11:21 BP 126/74 03/10/19 11:21 Pulse Ox 99 03/10/19 11:21 Vital Signs Reviewed: Yes Eye Exam: Normal Eyes: Positive: Conjunctiva Clear ENT: Positive: Pharyngeal erythema, Nasal congestion, TMs normal. Negative: Sinus tenderness Neck exam: Normal Neck: Positive: No Lymphadenopathy Respiratory: Positive: Lungs clear, Other: - dry cough with deep insp Cardiovascular Exam: Normal Cardiovascular: Positive: RRR Neurological Exam: Normal Neurological: Positive: Alert Psychological Exam: Normal Skin Exam: Normal Skin: Negative: Rashes Respiratory Course/Dx - Differential Dx/Diagnosis Differential Diagnosis/HQI/PQRI: Bronchitis, Lower Resp Infection, Sinusitis, Other - upper respiratory illness Provider Diagnosis: Upper respiratory infection Discharge - Sign-Out/Discharge Documenting (check all that apply): Patient Departure All imaging exams completed and their final reports reviewed: No Studies - Discharge Plan Condition: Good Disposition: HOME Prescriptions: Azithromycin TAB* [Zithromax TAB (Z-LEORA) 250 mg #6 tabs] 2 tab PO .TODAY, THEN 1 DAILY #1 leora Patient Education Materials: Upper Respiratory Infection (ED) Forms: *Work Release Referrals: Susana Colon MD [Primary Care Provider] - 2 Days (if no better) Additional Instructions: rest and drink plenty of fluids strat zithromax and take as prescribed continue over the counter cold and cough medicine as directed - Billing Disposition and Condition Condition: GOOD Disposition: Home
== END 2019-03-10 12:36 | disposition home or self-care (01) ==
LOC: UCEAST 11:02
DX: J06.9 Acute upper respiratory infection, unspecified (principal)
CPT/HCPCS: 99212; G0463

== ENCOUNTER 2019-11-29 09:58 | Emergency (ER) | payer BC, MEDICAID ==
[2019-11-29] MEDS ORDERED: NS 0.9% 1000 ML** 1,000 ML IV ONE ×2 (11:44→13:18)
--- NOTE | 2019-11-29 11:47 | ED ---
Complex/Multi-Sys Presentation - HPI Summary HPI Summary: 29 year old F presenting to [facility] with a chief complaint of dizziness, nausea, some back pain, abdominal pain, and a headache since earlier today. The patient rates the pain 8/10 in severity. Symptoms aggravated by nothing. Symptoms alleviated by nothing. Patient reports a history of vertigo in the past. Patient denies any cough, fever, ear pain, sore throat, vision changes, dysuria , injury, trauma, or vomiting. She took Tylenol for her pain. Medication list reviewed. Allergy list reviewed. Home Medications Medication Instructions Recorded Confirmed Type Azithromycin TAB* [Zithromax TAB 2 tab PO .TODAY, THEN 1 DAILY #1 03/10/19 Rx (Z-LEORA) 250 mg #6 tabs] leora D-Methorphan/PE/Acetaminophen 2 cap PO 03/10/19 History [Vicks Dayquil Liquicaps] - History Of Current Complaint Chief Complaint: EDDizziness Time Seen by Provider: 11/29/19 11:42 Hx Obtained From: Patient Onset/Duration: Lasting Hours Timing: Constant Severity Currently: Moderate Aggravating Factor(s): None Alleviating Factor(s): None Associated Signs And Symptoms: Positive: Dizziness, Headache, Nausea, Abdominal Pain, Back Pain, Other. Negative: Cough, Vomiting, Dysuria, Fever - Allergies/Home Medications Allergies/Adverse Reactions: Allergies Allergy/AdvReac Type Severity Reaction Status Date / Time No Known Allergies Allergy Verified 11/29/19 10:16 Home Medications: Home Medications Azithromycin TAB* [Zithromax TAB (Z-LEORA) 250 mg #6 tabs] 2 tab PO .TODAY, THEN 1 DAILY #1 leora 03/10/19 [Rx] D-Methorphan/PE/Acetaminophen [Vicks Dayquil Liquicaps] 2 cap PO 03/10/19 [ History] PMH/Surg Hx/FS Hx/Imm Hx Endocrine/Hematology History: Denies: Hx Diabetes, Hx Thyroid Disease Cardiovascular History: Denies: Hx Hypertension Respiratory History: Denies: Hx Asthma, Hx Chronic Obstructive Pulmonary Disease (COPD) GI History: Denies: Hx Ulcer History: Denies: Hx Kidney Infection, Hx Kidney Stones, Hx Renal Disease Neurological History: Reports: Other Neuro Impairments/Disorders - Vertigo Denies: Hx Migraine Psychiatric History: Denies: Hx Anxiety, Hx Depression, Other Psychiatric Issues/Disorders - Surgical History Surgery Procedure, Year, and Place: none Infectious Disease History: No Infectious Disease History: Denies: Hx Hepatitis, Hx Human Immunodeficiency Virus (HIV), History Other Infectious Disease, Traveled Outside the [place] in Last 30 Days - Family History Known Family History: Positive: Diabetes Negative: Hypertension - Social History Alcohol Use: Occasionally Substance Use Type: Reports: None Smoking Status (MU): Never Smoked Tobacco Have You Smoked in the Last Year: No Review of Systems Negative: Fever Eyes: Negative - Vision changes Negative: Sore Throat, Ear Ache Negative: Cough Positive: Abdominal Pain, Nausea. Negative: Vomiting Negative: dysuria Positive: Other - Back pain Neurological/Mental Status: Other - Dizziness Positive: Headache All Other Systems Reviewed And Are Negative: Yes Physical Exam - Summary Physical Exam Summary: Constitutional: Well-developed, Well-nourished, Alert. (-) Distressed Skin: Warm, Dry HENT: Normocephalic; Atraumatic Eyes: Conjunctiva normal; no nystagmus. Neck: Musculoskeletal ROM normal neck. (-) JVD, (-) Stridor, (-) Tracheal deviation Cardio: Rhythm regular, rate normal, Heart sounds normal; Intact distal pulses; The pedal pulses are 2+ and symmetric. Radial pulses are 2+ and symmetric. (-) Murmur Pulmonary/Chest wall: Effort normal. (-) Respiratory distress, (-) Wheezes, (-) Rales Abd: Soft, (-) tenderness, (-) Distension, (-) Guarding, (-) Rebound Musculoskeletal: (-) Edema Lymph: (-) Cervical adenopathy Neuro: Alert, Oriented x3; no focal deficits; GCS 15. Psych: Mood and affect Normal Triage Information Reviewed: Yes Vital Signs On Initial Exam: Initial Vitals Temp Pulse Resp BP Pulse Ox 97.6 F 77 16 134/90 100 11/29/19 10:13 11/29/19 10:13 11/29/19 10:13 11/29/19 10:13 11/29/19 10:13 Vital Signs Reviewed: Yes Procedures - Sedation Patient Received Moderate/Deep Sedation with Procedure: No Diagnostics - Vital Signs Vital Signs Temp Pulse Resp BP Pulse Ox 11/29/19 10:13 97.6 F 77 16 134/90 100 - Laboratory Result Diagrams: 11/29/19 11:58 11/29/19 11:58 Lab Statement: Any lab studies that have been ordered have been reviewed, and results considered in the medical decision making process. - CT Brain CT CT Interpretation Completed By: Radiologist Summary of CT Findings: No intracranial mass or hemorrhage is noted. ED physician has reviewed this report. - EKG 13:33 Cardiac Rate: NL - 62 BPM EKG Rhythm: Sinus Rhythm Summary of EKG Findings: Normal ECG. Dr. Carcamo has reviewed and interpreted this EKG. Complex Multi-Symp Course/Dx Course Of Treatment: 29 year old F presenting to [facility] with a chief complaint of dizziness, nausea, some back pain, abdominal pain, and a headache since earlier today. Physical exam findings: no nystagmus, no focal deficits. EKG reveals a normal ECG, sinus rhythm, rate [address] reveals, per radiologist, no intracranial mass or hemorrhage is noted. Laboratory results with no significant abnormalities except for an RBC of 5.33, MCV of 76, MCH of 25, RDW of 17, Ur leukocyte esterase of 2+ A, ur squamous epith cells present A , and urine bacteria 1+ A. In the ED course, the patient was given toradol, meclizine, normal saline, and zofran. Patient will be discharged with follow up from her PCP. The patient is agreeable with this plan. Patient ambulated around ED, steady gait, feels well for discharge home. - Diagnoses Provider Diagnoses: Headache, Dizziness Discharge ED - Sign-Out/Discharge Documenting (check all that apply): Patient Departure - Discharge Plan Condition: Stable Disposition: HOME Patient Education Materials: Acute Headache (ED), Dizziness (ED) Referrals: Susana Colon MD [Primary Care Provider] - 12/02/19 Additional Instructions: Follow-up with your PCP on December 02, 2019. Return to the emergency department for changing or worsening symptoms. - Billing Disposition and Condition Condition: STABLE Disposition: Home - Attestation Statements Document Initiated by Scribe: Yes Documenting Scribe: Fay Willard Provider For Whom Scribe is Documenting (Include Credential): Coleman Carcamo DO Scribe Attestation: Fay Albert scribed for Coleman Carcamo DO on 11/29/19 at 1545. Scribe Documentation Reviewed: Yes Provider Attestation: The documentation as recorded by the scribeFay accurately reflects the service I personally performed and the decisions made by me, Coleman Carcamo, Status of Scribe Document: Viewed
[2019-11-29] MEDS ORDERED: Ondansetron INJ* 2 MG/ML VIAL IV ONE (12:01)
[2019-11-29] MEDS ORDERED: Ketorolac INJ* 30 MG/ML 1 ML VIAL IV PUSH ONE (12:01)
[2019-11-29 12:03] LABS: ABS Basophils 0.1 10^3/ul (0-0.2); ABS Lymphocytes 2.1 10^3/ul (1.0-4.8); ABS Monocytes 0.5 10^3/ul (0-0.8); Eosinophil % 0.5 %; Hematocrit 41 % (35-47); Hemoglobin 13.1 g/dL (12.0-16.0); Lymphocyte % 24.2 %; Mean Corpuscular HGB Conc 32 g/dL (31-36); Mean Corpuscular Hemoglobin 25 pg (27-31); Mean Corpuscular Volume 76 fL (80-97); Mean Platelet Volume 8.4 fL (7.4-10.4); Platelet Count 302 10^3/uL (150-450); Red Blood Count 5.33 10^6 /uL (3.70-4.87); Red Cell Distribution Width 17 % (10-15); White Blood Count 8.8 10^3/uL (3.5-10.8)
[2019-11-29 12:31] LABS: Albumin 4.3 g/dL (3.2-5.2); Albumin/Globulin Ratio 1.3 (1-3); BUN/Creatinine Ratio 15.4 (8-20); Calcium 9.3 mg/dL (8.6-10.3); EGFR African American 130.4 (>60); EGFR Non-African American 107.8 (>60); Globulin 3.4 g/dL (2-4); Potassium 3.5 mmol/L (3.5-5.0); Total Bilirubin 0.4 mg/dL (0.2-1.0); Total Protein 7.7 g/dL (6.4-8.9)
[2019-11-29 12:38] LABS: HCG Pregnancy 0.87 mIU/mL
[2019-11-29] MEDS ORDERED: Meclizine TAB* 12.5 MG PO ONE (13:18)
[2019-11-29 13:42] LABS: Urine Appearance Cloudy; Urine Bilirubin Negative (Negative); Urine Blood Negative (Negative); Urine Color Yellow; Urine Glucose Negative (Negative); Urine Ketones Negative (Negative); Urine Nitrite Negative (Negative); Urine Protein Negative (Negative); Urine Specific Gravity 1.012 (1.010-1.030); Urine Urobilinogen Negative (Negative)
[2019-11-29 13:44] LABS: Urine Bacteria 1+ (Absent); Urine Red Blood Cell Trace(0-2/hpf) (Absent); Urine Squamous Epithelial Cell Present (Absent); Urine White Blood Cell Trace(0-5/hpf) (Absent)
[2019-11-29 14:47] VITALS: BP 114/81
== END 2019-11-29 14:46 | disposition home or self-care (01) ==
LOC: ED 09:58
DX: R51 Headache (principal); R42 Dizziness and giddiness; R11.0 Nausea; R10.9 Unspecified abdominal pain
CPT/HCPCS: 36415; 70450; 80053; 81003; 81015; 84702; 85025; 87086; 93005; 96361; 96374; 99282; A9270-GY; J1885; J2405